=== PATIENT | female | born 1980 | race Caucasian/White ===

== ENCOUNTER 2025-01-02 10:01 | Inpatient (IN) | payer OTHER ==
[~2025-01-02] VITALS: Ht 170.2 cm; Wt 70.8 kg
[2025-01-02 17:05] VITALS: BP 114/79; PULSE 78; RESP 18; TEMP 97.9; O2SAT 99
[2025-01-02] MEDS ORDERED: ACETAMINOPHEN 325 MG TABLET PO PRN (17:15)
[2025-01-02] MEDS ORDERED: ONDANSETRON 4 MG TABLET PO PRN (17:15)
[2025-01-02] MEDS ORDERED: SENNOSIDES 8.6 MG TABLET PO PRN (17:15)
[2025-01-02] MEDS ORDERED: IBUPROFEN 800 MG TABLET PO PRN (17:15)
[2025-01-02] MEDS: *PATIENT'S OWN MED [ENTER DRUG, DOSE, FREQUENCY IN COMMENTS] CLINICAL ONE (18:04)
[2025-01-02] MEDS: TAPENTADOL HCL 50 MG PO PRN (18:49)
[2025-01-02 20:00] VITALS: BP 131/71; PULSE 97; RESP 18; TEMP 97.7; O2SAT 99
[2025-01-02] MEDS: DEXTRAN 70 0.1%/HYPROMELL 0.3% 0.9 ML OPHTHALMIC SOLUTION [PF] OU SCH (21:00)
[2025-01-02] MEDS: DICLOFENAC SODIUM 1% 100 GM GEL [2GM] TP SCH (21:00)
[2025-01-02] MEDS: PREGABALIN 75 MG CAPSULE PO SCH (21:37)
[2025-01-03 06:38] LABS: PLATELET COUNT (AUTO) 229 K/uL (150-450); RED BLOOD CELL COUNT(AUTO) 4.14 MIL/uL (4.00-5.20); RED CELL DISTRIBUTION WIDTH 14.4 % (11.5-14.5); WHITE BLOOD COUNT (AUTO) 5.7 K/uL (4.5-11.0)
[2025-01-03 07:26] LABS: ASPARTATE AMINOTRANSFERASE 21 U/L (15-37); CALCIUM, TOTAL 9.1 mg/dL (8.8-10.5); CREATININE 0.67 mg/dL (0.60-1.30); GLOMERULAR FILTR. RATE CALC > 60 mL/min (>60); GLUCOSE,RANDOM 92 mg/dL (70-110); SODIUM SERUM 140 mmol/L (136-145); TOTAL PROTEIN, SERUM 7.4 g/dL (6.4-8.2); UREA NITROGEN, BLOOD 10 mg/dL (7-18)
[2025-01-03] MEDS: ETHYL ALCOHOL 62% ANTISEPTIC NASAL SANITIZER 0.6 ML AMPUL NASAL SCH (07:54)
[2025-01-03 07:55] VITALS: BP 122/86; PULSE 75; RESP 19; TEMP 98.4; O2SAT 98
[2025-01-03] MEDS: ENOXAPARIN SODIUM 40 MG/0.4 ML PF SYRINGE SQ SCH (07:57)
[2025-01-03] MEDS: POLYETHYLENE GLYCOL 3350 17 GM PACKET PO SCH (07:57)
[2025-01-03 08:50] VITALS: O2SAT 98
[2025-01-03] MEDS ORDERED: CARBOXYMETHYLCELLULOSE SODIUM 0.4 ML OPHTHALMIC SOLUTION [PF] OU PRN (09:15)
[2025-01-03 20:00] VITALS: BP 110/65; PULSE 95; RESP 18; TEMP 98.4; O2SAT 97
[2025-01-04 07:36] VITALS: BP 114/77; PULSE 82; RESP 19; TEMP 97.7; O2SAT 100
[2025-01-04 07:39] VITALS: O2SAT 100
[2025-01-04 20:10] VITALS: BP 114/75; PULSE 92; RESP 19; TEMP 98.8; O2SAT 98
[2025-01-05 08:00] VITALS: BP 110/74; PULSE 82; RESP 19; TEMP 97.8; O2SAT 98
[2025-01-05 21:56] VITALS: BP 113/75; PULSE 91; RESP 20; TEMP 99.1; O2SAT 98
[2025-01-05 22:00] VITALS: O2SAT 98
[2025-01-06 08:00] VITALS: BP 97/62; PULSE 73; RESP 19; TEMP 97.5; O2SAT 98
[2025-01-06 08:23] VITALS: O2SAT 98
[2025-01-06 19:25] VITALS: BP 126/84; PULSE 67; RESP 18; TEMP 98.6; O2SAT 99
[2025-01-06 22:18] VITALS: O2SAT 99
[2025-01-07 05:07] VITALS: BP 124/90; PULSE 68; RESP 18; O2SAT 99
[2025-01-07 08:45] VITALS: BP 120/85; PULSE 70; RESP 18; O2SAT 98
[2025-01-07] MEDS: DICLOFENAC SODIUM 1% 100 GM GEL [2GM] TP PRN (09:18)
[2025-01-07 20:00] VITALS: BP 120/80; PULSE 91; RESP 18; TEMP 98.4; O2SAT 98
[2025-01-08 08:00] VITALS: BP 114/83; PULSE 78; RESP 19; TEMP 98.1; O2SAT 97
[2025-01-08] MEDS ORDERED: PREG75 PO (12:52)
[2025-01-08] MEDS ORDERED: TIZA-211 PO (12:52)
[2025-01-08] MEDS ORDERED: DICL100G60 TP (12:52)
[2025-01-08] MEDS ORDERED: CARB50DR OU (12:52)
[2025-01-08 21:16] VITALS: BP 117/82; PULSE 90; RESP 18; TEMP 98.1; O2SAT 99
[2025-01-08 23:16] VITALS: O2SAT 99
[2025-01-09 08:00] VITALS: BP 107/70; PULSE 77; RESP 18; TEMP 98.4; O2SAT 98
== END 2025-01-09 12:55 | disposition home or self-care (01) | DRG 95 ==
LOC: 2WR 17:32
PROVIDERS: ADMIT Physical Medicine & Rehabilitation; ATTEND Physical Medicine & Rehabilitation
DX: G61.0 Guillain-Barre syndrome (principal); N39.0 Urinary tract infection, site not specified; R26.0 Ataxic gait; H53.2 Diplopia; G51.0 Bell's palsy; R42 Dizziness and giddiness; R26.81 Unsteadiness on feet; Z74.09 Other reduced mobility; R51.9 Headache, unspecified; B96.1 Klebsiella pneumoniae [K. pneumoniae] as the cause of diseases classified elsewhere; M54.2 Cervicalgia; R53.1 Weakness; G62.9 Polyneuropathy, unspecified; H02.402 Unspecified ptosis of left eyelid; C53.9 Malignant neoplasm of cervix uteri, unspecified; Z90.710 Acquired absence of both cervix and uterus; Z79.899 Other long term (current) drug therapy; Z88.2 Allergy status to sulfonamides; Z85.41 Personal history of malignant neoplasm of cervix uteri
CPT/HCPCS: 80053; 85025; 87081; 92523; 97110; 97112; 97116; 97150; 97163; 97167; 97530; 97535; 99366; J1650